=== PATIENT | female | born 1945 | race Hispanic/Latino ===

== ENCOUNTER 2017-06-14 12:34 | Observation (INO) | payer MEDICARE ==
[~2017-06-14] VITALS: Ht 149.9 cm; Wt 123.2 kg
[~2017-06-14 12:34] MED LIST: ADV250 IH; ALBU8.5H8 IH; AMLO10TA2 PO; ATOR10 PO; BUPR-47 PO; CARB-38 PO; CHLO25TA3 PO; CHOL500050 PO; CYAN5POW IM; FURO20TA4 PO; LOSA100T29 PO; MAGN400C PO; METF500T6 PO; METO-391 PO; MONT10TA24 PO; THEO400T3 PO; THYR60TA2 PO; ZIPR60CA PO
[2017-06-14 13:07] LABS: BASOPHILS % (AUTO) 0.9 % (0.0-5.0); EOSINOPHILS % (AUTO) 2.5 % (0.0-8.0); LYMPHOCYTES % (AUTO) 12.5 % (21.0-51.0); MEAN CORPUSCULAR HEMOGLOBIN 27.3 pg (27.0-33.0); MEAN CORPUSCULAR HGB CONC 31.7 g/dL (32.0-36.0); MEAN CORPUSCULAR VOLUME 86.1 fL (79-99); MONOCYTES % (AUTO) 7.9 % (3.0-13.0); NEUTROPHILS % (AUTO) 76.2 % (40.0-77.0); NUCLEATED RED BLOOD CELLS 0.1 % (0.0-0.19); PLATELET COUNT (AUTO) 213 K/uL (130-400); RED BLOOD CELL COUNT(AUTO) 4.53 MIL/uL (4.00-5.50); RED CELL DISTRIBUTION WIDTH 15.5 % (11.0-15.5); WHITE BLOOD COUNT (AUTO) 9.9 K/uL (4.8-10.8)
[2017-06-14 13:15] LABS: CREATININE 0.9 mg/dL (0.5-1.5); POTASSIUM 4.3 mmol/L (3.5-5.1)
[2017-06-14 13:20] LABS: ALBUMIN 3.3 g/dL (3.5-5.0); BILIRUBIN,TOTAL 0.5 mg/dL (0.2-1.0); INR 0.95 (0.85-1.15); PARTIAL THROMBOPLASTIN TIME 25.3 SEC (26.3-35.5); TOTAL PROTEIN, SERUM 6.9 g/dL (6.0-8.3)
[2017-06-14 13:29] LABS: B-TYPE NATRIURETIC PEPTIDE 203 pg/mL (0-100)
[2017-06-14 14:02] LABS: ABG BASE EXCESS 8.3 mmol/L (-2.0-3.0); ABG HCO3 37.8 mmol/L (21.0-28.0); ABG OXYGEN SATURATION 89.5 % (95.0-99.0); ABG PCO2 77 mmHg (32-45)
[2017-06-14 18:40] VITALS: BP 120/72
[2017-06-14 19:00] VITALS: BP 133/59
[2017-06-14] MEDS ORDERED: ZOSYN 3.375GM+NS 50ML 50 ML IV SCH (19:00)
[2017-06-14] MEDS ORDERED: METHYLPREDNISOLONE SOD SUCC 40MG/ML 1ML IVP SCH (19:00)
[2017-06-14] MEDS: INSULIN HUMULIN R 100 UNIT/ML 3ML SQ SCH (21:00)
[2017-06-14] MEDS ORDERED: THEOPHYLLINE ANHYDROUS 100 MG TAB.SR.12H PO SCH (21:00)
[2017-06-14] MEDS ORDERED: BUPROPION HCL 150 MG PO SCH (21:00)
[2017-06-14] MEDS ORDERED: ATORVASTATIN CALCIUM 10 MG TABLET PO SCH (21:00)
[2017-06-14] MEDS: **HM**Carbidopa/Levodopa (Carbidopa-Levo 25-100 mg Odt PO SCH (21:00)
[2017-06-14] MEDS ORDERED: SODIUM CHLORIDE 0.9% 500ML 500 ML IV ONE (23:32)
[2017-06-14] MEDS: BUDESONIDE 0.5 MG/2 ML INH IH SCH (23:34)
[2017-06-14] MEDS: IPRATROPIUM/ALBUTEROL SULFATE 3 ML SOLUTION IH SCH (23:34)
[2017-06-14] MEDS: ZOSYN 3.375GM+NS 50ML 50 ML IV SCH (23:37)
[2017-06-14] MEDS: MAGNESIUM OXIDE 400 MG TABLET PO SCH (23:40)
[2017-06-14] MEDS: METOPROLOL TARTRATE 25 MG TAB PO SCH (23:40)
[2017-06-14] MEDS: DOXYCYCLINE HYCLATE 100 MG TABLET PO SCH (23:40)
[2017-06-14] MEDS: METHYLPREDNISOLONE SOD SUCC 40MG/ML 1ML IVP SCH (23:41)
[2017-06-14] MEDS: ZIPRASIDONE HCL 20 MG CAPSULE PO SCH (23:42)
[2017-06-15] VITALS: BP 129/67
[2017-06-15 03:48] LABS: ABG BASE EXCESS 5.4 mmol/L (-2.0-3.0); ABG HCO3 33.3 mmol/L (21.0-28.0); ABG OXYGEN SATURATION 90.9 % (95.0-99.0); ABG PCO2 63 mmHg (32-45)
[2017-06-15 04:00] VITALS: BP 129/75
[2017-06-15] MEDS: INSULIN HUMULIN R 100 UNIT/ML 3ML SQ SCH ×3 (05:56→16:30)
[2017-06-15] MEDS: ZOSYN 3.375GM+NS 50ML 50 ML IV SCH ×2 (06:02→14:00)
[2017-06-15] MEDS: METHYLPREDNISOLONE SOD SUCC 40MG/ML 1ML IVP SCH ×4 (06:02→13:00)
[2017-06-15 06:20] LABS: HEMATOCRIT 38.6 % (36-48); MEAN CORPUSCULAR HEMOGLOBIN 27.3 pg (27.0-33.0); MEAN CORPUSCULAR VOLUME 85.4 fL (79-99); PLATELET COUNT (AUTO) 208 K/uL (130-400); RED BLOOD CELL COUNT(AUTO) 4.52 MIL/uL (4.00-5.50); RED CELL DISTRIBUTION WIDTH 15.2 % (11.0-15.5); WHITE BLOOD COUNT (AUTO) 5.4 K/uL (4.8-10.8)
[2017-06-15 06:30] LABS: MAGNESIUM 2.1 mg/dL (1.80-2.40); PHOSPHORUS 4.1 mg/dL (2.5-4.9); THEOPHYLLINE 2.8 mcg/mL (10.0-20.0)
[2017-06-15] MEDS: IPRATROPIUM/ALBUTEROL SULFATE 3 ML SOLUTION IH SCH ×3 (06:36→18:19)
[2017-06-15] MEDS: BUDESONIDE 0.5 MG/2 ML INH IH SCH ×2 (06:36→18:19)
[2017-06-15] MEDS ORDERED: THYROID PORK 60 MG PO SCH (07:30)
[2017-06-15 08:22] VITALS: BP 129/59
[2017-06-15] MEDS: **HM**Carbidopa/Levodopa (Carbidopa-Levo 25-100 mg Odt PO SCH (09:00)
[2017-06-15] MEDS ORDERED: AMLODIPINE BESYLATE 5 MG TAB PO SCH (09:00)
[2017-06-15] MEDS ORDERED: MONTELUKAST SODIUM 10 MG TAB PO SCH (09:00)
[2017-06-15] MEDS ORDERED: OSELTAMIVIR PHOSPHATE 75 MG CAP PO SCH (09:00)
[2017-06-15] MEDS ORDERED: LOSARTAN 100 MG TABLET PO SCH (09:00)
[2017-06-15] MEDS ORDERED: FUROSEMIDE 20 MG TABLET PO SCH (09:00)
[2017-06-15] MEDS ORDERED: CHLORTHALIDONE 25 MG PO SCH (09:00)
[2017-06-15 11:41] VITALS: BP 115/54
[2017-06-15] MEDS: DOXYCYCLINE HYCLATE 100 MG TABLET PO SCH (12:23)
[2017-06-15] MEDS: ZIPRASIDONE HCL 20 MG CAPSULE PO SCH (12:24)
[2017-06-15] MEDS: MAGNESIUM OXIDE 400 MG TABLET PO SCH (12:25)
[2017-06-15] MEDS: METOPROLOL TARTRATE 25 MG TAB PO SCH (12:26)
[2017-06-15] MEDS ORDERED: LEVO500T2 PO (15:59)
[2017-06-15 16:21] VITALS: BP 127/71
[2017-06-21] MEDS ORDERED: CHOLECALCIFEROL 50000 UNIT PO SCH (09:00)
[2017-07-14] MEDS ORDERED: CYANOCOBALAMIN (VITAMIN B-12) 1000 MCG/ML 1ML VIAL IM SCH (09:00)
== END 2017-06-15 19:50 | disposition home or self-care (01) ==
LOC: EDH 12:34 → EDHIP 15:35 → 3CH 18:00
PROVIDERS: ADMIT Internal Medicine; ATTEND Internal Medicine
DX: J44.1 Chronic obstructive pulmonary disease with (acute) exacerbation (principal); J96.22 Acute and chronic respiratory failure with hypercapnia; J96.21 Acute and chronic respiratory failure with hypoxia; E11.9 Type 2 diabetes mellitus without complications; I10 Essential (primary) hypertension; E78.5 Hyperlipidemia, unspecified; E03.9 Hypothyroidism, unspecified; E66.01 Morbid (severe) obesity due to excess calories; G47.33 Obstructive sleep apnea (adult) (pediatric); I25.10 Atherosclerotic heart disease of native coronary artery without angina pectoris; G20 Parkinson's disease; F41.9 Anxiety disorder, unspecified; Z87.891 Personal history of nicotine dependence; Z91.19 Patient's noncompliance with other medical treatment and regimen; Z90.710 Acquired absence of both cervix and uterus; Z99.81 Dependence on supplemental oxygen; Z96.659 Presence of unspecified artificial knee joint
CPT/HCPCS: 36415 ×2; 36600 ×2; 71045; 80053; 80198; 82803 ×2; 82948 ×4; 83605; 83735; 83880; 84100; 84484; 85025; 85027; 85610; 85730; 92610; 93005; 94640 ×7; 94660; 94664; 96365; 96366; 96372; 96375; 96376; 99285; A6453; G0378 ×28; J1815; J2543 ×2; J2920 ×2; J7040

== ENCOUNTER 2017-08-12 17:00 | Inpatient (IN) | payer MEDICARE ==
[~2017-08-12] VITALS: Ht 149.9 cm; Wt 111.1 kg
[~2017-08-12 17:00] MED LIST changes: -ADV250 IH; -ALBU8.5H8 IH; +LEVO500T2 PO; -METF500T6 PO
[2017-08-12 17:34] LABS: HEMATOCRIT 38.4 % (36-48); LYMPHOCYTES % (AUTO) 11.2 % (21.0-51.0); MEAN CORPUSCULAR HGB CONC 32.3 g/dL (32.0-36.0); MEAN CORPUSCULAR VOLUME 86.6 fL (79-99); MONOCYTES % (AUTO) 11.4 % (3.0-13.0); NEUTROPHILS % (AUTO) 75.4 % (40.0-77.0); NUCLEATED RED BLOOD CELLS 0.2 % (0.0-0.19); PLATELET COUNT (AUTO) 221 K/uL (130-400); RED BLOOD CELL COUNT(AUTO) 4.43 MIL/uL (4.00-5.50); RED CELL DISTRIBUTION WIDTH 15.3 % (11.0-15.5); WHITE BLOOD COUNT (AUTO) 10.8 K/uL (4.8-10.8)
[2017-08-12 17:59] LABS: B-TYPE NATRIURETIC PEPTIDE 413 pg/mL (0-100)
[2017-08-12 18:24] LABS: POTASSIUM 3.8 mmol/L (3.5-5.1)
[2017-08-12 18:29] LABS: ABG BASE EXCESS 5.9 mmol/L (-2.0-3.0); ABG HCO3 34.9 mmol/L (21.0-28.0); ABG OXYGEN SATURATION 98.6 % (95.0-99.0); ABG PCO2 71 mmHg (32-45)
[2017-08-12 18:29] LABS: ALBUMIN 3.2 g/dL (3.5-5.0); BILIRUBIN,TOTAL 0.5 mg/dL (0.2-1.0); TOTAL PROTEIN, SERUM 6.8 g/dL (6.0-8.3)
[2017-08-12] MEDS ORDERED: ASPIRIN 325 MG TABLET ONE (18:53)
[2017-08-12] MEDS ORDERED: FUROSEMIDE 10 MG/ML 4ML VIAL ONE (18:53)
[2017-08-12] MEDS ORDERED: ONDANSETRON HCL 4 MG/2 ML VIAL IVP PRN (21:15)
[2017-08-12] MEDS ORDERED: ACETAMINOPHEN 325 MG TAB PO PRN (21:15)
[2017-08-12] MEDS ORDERED: IPRATROPIUM/ALBUTEROL SULFATE 3 ML SOLUTION IH PRN (21:15)
[2017-08-12 21:24] LABS: ABG BASE EXCESS 6.8 mmol/L (-2.0-3.0); ABG HCO3 36.8 mmol/L (21.0-28.0); ABG OXYGEN SATURATION 95.9 % (95.0-99.0); ABG PCO2 79 mmHg (32-45)
[2017-08-12] MEDS ORDERED: LEVOFLOXACIN 500 MG/D5W 100 ML 100 ML ONE (21:39)
[2017-08-12] MEDS: IPRATROPIUM/ALBUTEROL SULFATE 3 ML SOLUTION IH SCH (23:44)
[2017-08-13] MEDS: LEVOFLOXACIN 500 MG/D5W 100 ML 100 ML IV SCH ×2 (00:40→21:55)
[2017-08-13 00:44] VITALS: BP 115/66
[2017-08-13 04:08] VITALS: BP 117/68
[2017-08-13 05:10] LABS: HEMATOCRIT 37.9 % (36-48); MEAN CORPUSCULAR HEMOGLOBIN 28.2 pg (27.0-33.0); MEAN CORPUSCULAR HGB CONC 32.3 g/dL (32.0-36.0); MEAN CORPUSCULAR VOLUME 87.3 fL (79-99); NUCLEATED RED BLOOD CELLS 0.3 % (0.0-0.19); PLATELET COUNT (AUTO) 206 K/uL (130-400); RED BLOOD CELL COUNT(AUTO) 4.34 MIL/uL (4.00-5.50); RED CELL DISTRIBUTION WIDTH 15.5 % (11.0-15.5)
[2017-08-13 05:21] LABS: POTASSIUM 3.7 mmol/L (3.5-5.1)
[2017-08-13 05:28] LABS: B-TYPE NATRIURETIC PEPTIDE 164 pg/mL (0-100)
[2017-08-13] MEDS: IPRATROPIUM/ALBUTEROL SULFATE 3 ML SOLUTION IH SCH ×3 (06:15→18:27)
[2017-08-13] MEDS ORDERED: FUROSEMIDE 40 MG TABLET PO SCH (07:15)
[2017-08-13 07:29] LABS: ABG HCO3 40.5 mmol/L (21.0-28.0); ABG OXYGEN SATURATION 87.7 % (95.0-99.0); ABG PCO2 84 mmHg (32-45)
[2017-08-13] MEDS: INSULIN HUMULIN R 100 UNIT/ML 3ML SQ SCH ×4 (07:30→21:00)
[2017-08-13 07:50] VITALS: BP 106/54
[2017-08-13] MEDS: PANTOPRAZOLE SODIUM 40 MG TABLET.DR PO SCH (08:48)
[2017-08-13] MEDS: ENOXAPARIN SODIUM 40 MG/0.4 ML SYRINGE SQ SCH (08:52)
[2017-08-13 11:00] VITALS: BP 106/54
[2017-08-13 16:00] VITALS: BP 101/52
[2017-08-13] MEDS: FUROSEMIDE 40 MG TABLET PO SCH (16:26)
[2017-08-13 16:59] LABS: ABG BASE EXCESS 12.6 mmol/L (-2.0-3.0); ABG HCO3 41.7 mmol/L (21.0-28.0); ABG OXYGEN SATURATION 93.5 % (95.0-99.0); ABG PCO2 74 mmHg (32-45)
[2017-08-13 19:39] VITALS: BP 113/48
[2017-08-13] MEDS: MONTELUKAST SODIUM 10 MG TAB PO SCH (21:55)
[2017-08-13] MEDS: MAGNESIUM OXIDE 400 MG TABLET PO SCH (21:55)
[2017-08-13] MEDS: THEOPHYLLINE ANHYDROUS 100 MG TAB.SR.12H PO SCH (21:55)
[2017-08-13] MEDS: ATORVASTATIN CALCIUM 10 MG TABLET PO SCH (21:56)
[2017-08-13] MEDS: CARBIDOPA-LEVODOPA 25-100 TAB PO SCH (21:56)
[2017-08-13] MEDS: ZIPRASIDONE HCL 20 MG CAPSULE PO SCH (21:57)
[2017-08-13] MEDS: BUPROPION HCL 150 MG TABLET.SA PO SCH (21:57)
[2017-08-13] MEDS: METOPROLOL TARTRATE 25 MG TAB PO SCH (21:57)
[2017-08-14] VITALS: BP 99/58
[2017-08-14] MEDS: IPRATROPIUM/ALBUTEROL SULFATE 3 ML SOLUTION IH SCH ×5 (00:11→23:06)
[2017-08-14 04:28] VITALS: BP 97/46
[2017-08-14 05:01] LABS: ABG BASE EXCESS 14.8 mmol/L (-2.0-3.0); ABG HCO3 42.4 mmol/L (21.0-28.0); ABG OXYGEN SATURATION 95.1 % (95.0-99.0); ABG PCO2 64 mmHg (32-45)
[2017-08-14] MEDS: LEVOTHYROXINE 100 MCG PO SCH (06:47)
[2017-08-14] MEDS: INSULIN HUMULIN R 100 UNIT/ML 3ML SQ SCH ×4 (06:47→21:00)
[2017-08-14 07:00] VITALS: BP 119/49
[2017-08-14] MEDS ORDERED: THYROID PORK 60 MG PO SCH (07:30)
[2017-08-14] MEDS: LOSARTAN 100 MG TABLET PO SCH (09:15)
[2017-08-14] MEDS: MAGNESIUM OXIDE 400 MG TABLET PO SCH ×2 (09:15→16:24)
[2017-08-14] MEDS: CARBIDOPA-LEVODOPA 25-100 TAB PO SCH ×2 (09:15→21:07)
[2017-08-14] MEDS: METOPROLOL TARTRATE 25 MG TAB PO SCH ×2 (09:15→21:07)
[2017-08-14] MEDS: PANTOPRAZOLE SODIUM 40 MG TABLET.DR PO SCH (09:15)
[2017-08-14] MEDS: AMLODIPINE BESYLATE 5 MG TAB PO SCH (09:16)
[2017-08-14] MEDS: FUROSEMIDE 40 MG TABLET PO SCH ×2 (09:16→16:24)
[2017-08-14] MEDS: ENOXAPARIN SODIUM 40 MG/0.4 ML SYRINGE SQ SCH (09:17)
[2017-08-14] MEDS: ZIPRASIDONE HCL 20 MG CAPSULE PO SCH ×2 (09:21→21:07)
[2017-08-14 11:00] VITALS: BP 97/59
[2017-08-14 16:00] VITALS: BP 106/59
[2017-08-14 20:18] VITALS: BP 115/48
[2017-08-14] MEDS: BUPROPION HCL 150 MG TABLET.SA PO SCH (21:06)
[2017-08-14] MEDS: MONTELUKAST SODIUM 10 MG TAB PO SCH (21:07)
[2017-08-14] MEDS: ATORVASTATIN CALCIUM 10 MG TABLET PO SCH (21:07)
[2017-08-14] MEDS: LEVOFLOXACIN 500 MG/D5W 100 ML 100 ML IV SCH (21:07)
[2017-08-14] MEDS: THEOPHYLLINE ANHYDROUS 100 MG TAB.SR.12H PO SCH (21:07)
[2017-08-15] VITALS (7 sets, daily range): BP systolic 93–135; BP diastolic 41–82
[2017-08-15] MEDS: IPRATROPIUM/ALBUTEROL SULFATE 3 ML SOLUTION IH SCH ×3 (05:50→18:54)
[2017-08-15] MEDS: INSULIN HUMULIN R 100 UNIT/ML 3ML SQ SCH ×4 (06:54→21:00)
[2017-08-15] MEDS: LEVOTHYROXINE 100 MCG PO SCH (06:55)
[2017-08-15] MEDS: AMLODIPINE BESYLATE 5 MG TAB PO SCH (09:22)
[2017-08-15] MEDS: ZIPRASIDONE HCL 20 MG CAPSULE PO SCH ×2 (09:22→22:05)
[2017-08-15] MEDS: FUROSEMIDE 40 MG TABLET PO SCH ×2 (09:22→17:17)
[2017-08-15] MEDS: LOSARTAN 100 MG TABLET PO SCH (09:22)
[2017-08-15] MEDS: PANTOPRAZOLE SODIUM 40 MG TABLET.DR PO SCH (09:22)
[2017-08-15] MEDS: MAGNESIUM OXIDE 400 MG TABLET PO SCH ×2 (09:22→17:17)
[2017-08-15] MEDS: METOPROLOL TARTRATE 25 MG TAB PO SCH ×2 (09:22→21:00)
[2017-08-15] MEDS: CARBIDOPA-LEVODOPA 25-100 TAB PO SCH ×2 (09:22→22:05)
[2017-08-15] MEDS: ENOXAPARIN SODIUM 40 MG/0.4 ML SYRINGE SQ SCH (09:23)
[2017-08-15] MEDS: LACTULOSE 20 GM/30 ML UDCUP PO SCH (18:17)
[2017-08-15] MEDS: LEVOFLOXACIN 500 MG/D5W 100 ML 100 ML IV SCH (22:04)
[2017-08-15] MEDS: BUPROPION HCL 150 MG TABLET.SA PO SCH (22:05)
[2017-08-15] MEDS: ATORVASTATIN CALCIUM 10 MG TABLET PO SCH (22:05)
[2017-08-15] MEDS: THEOPHYLLINE ANHYDROUS 100 MG TAB.SR.12H PO SCH (22:05)
[2017-08-15] MEDS: MONTELUKAST SODIUM 10 MG TAB PO SCH (22:05)
[2017-08-16] MEDS: IPRATROPIUM/ALBUTEROL SULFATE 3 ML SOLUTION IH SCH ×3 (01:12→10:49)
[2017-08-16 04:00] VITALS: BP 98/57
[2017-08-16 04:23] LABS: BASOPHILS % (AUTO) 0.6 % (0.0-5.0); EOSINOPHILS % (AUTO) 2.2 % (0.0-8.0); HEMATOCRIT 40.5 % (36-48); LYMPHOCYTES % (AUTO) 15.6 % (21.0-51.0); MEAN CORPUSCULAR HEMOGLOBIN 27.7 pg (27.0-33.0); MEAN CORPUSCULAR HGB CONC 32.5 g/dL (32.0-36.0); MEAN CORPUSCULAR VOLUME 85.2 fL (79-99); MONOCYTES % (AUTO) 12.9 % (3.0-13.0); NEUTROPHILS % (AUTO) 68.7 % (40.0-77.0); NUCLEATED RED BLOOD CELLS 0.1 % (0.0-0.19); PLATELET COUNT (AUTO) 212 K/uL (130-400); RED BLOOD CELL COUNT(AUTO) 4.75 MIL/uL (4.00-5.50); RED CELL DISTRIBUTION WIDTH 15.5 % (11.0-15.5)
[2017-08-16 04:42] LABS: CREATININE 1.7 mg/dL (0.5-1.5); POTASSIUM 3.2 mmol/L (3.5-5.1)
[2017-08-16] MEDS: LACTULOSE 20 GM/30 ML UDCUP PO SCH ×3 (05:05→12:00)
[2017-08-16] MEDS: INSULIN HUMULIN R 100 UNIT/ML 3ML SQ SCH ×2 (06:00→11:30)
[2017-08-16] MEDS: LEVOTHYROXINE 100 MCG PO SCH (06:02)
[2017-08-16] MEDS ORDERED: POTASSIUM CHLORIDE 20 MEQ ERTAB PO PRN (07:00)
[2017-08-16] MEDS ORDERED: POTASSIUM CHLORIDE 20MEQ/100ML 100 ML IV PRN (07:00)
[2017-08-16] MEDS ORDERED: POTASSIUM CHLORIDE 10 MEQ/TAB.SA PO ONE ×3 (07:00→08:31)
[2017-08-16] MEDS ORDERED: LIDOCAINE HCL-MPF 1% 2ML VIAL IVP PRN (07:00)
[2017-08-16] MEDS ORDERED: POTASSIUM CHLORIDE 10% ELIXIR 20 MEQ/15 ML UDCUP PO PRN (07:00)
[2017-08-16 08:10] VITALS: BP 110/49
[2017-08-16] MEDS: ZIPRASIDONE HCL 20 MG CAPSULE PO SCH (08:37)
[2017-08-16] MEDS: CARBIDOPA-LEVODOPA 25-100 TAB PO SCH (08:37)
[2017-08-16] MEDS: METOPROLOL TARTRATE 25 MG TAB PO SCH (08:37)
[2017-08-16] MEDS: PANTOPRAZOLE SODIUM 40 MG TABLET.DR PO SCH (08:38)
[2017-08-16] MEDS: AMLODIPINE BESYLATE 5 MG TAB PO SCH (08:38)
[2017-08-16] MEDS: MAGNESIUM OXIDE 400 MG TABLET PO SCH (08:38)
[2017-08-16] MEDS: LOSARTAN 100 MG TABLET PO SCH (08:38)
[2017-08-16] MEDS: FUROSEMIDE 40 MG TABLET PO SCH (08:38)
[2017-08-16] MEDS: ENOXAPARIN SODIUM 40 MG/0.4 ML SYRINGE SQ SCH (08:40)
[2017-08-16 12:00] VITALS: BP 124/96
== END 2017-08-16 15:49 | disposition home or self-care (01) | DRG 189 ==
LOC: EDH 17:00 → OBSVTOIN 18:51 → EDHIP 18:51 → 2AH 23:17 → INTOOBSV 08-13 10:06 → OBSVTOIN 08-13 10:06
PROVIDERS: ADMIT Internal Medicine; ATTEND Internal Medicine
PROC: 5A09357 Assistance with Respiratory Ventilation, Less than 24 Consecutive Hours, Continuous Positive Airway Pressure (ICD-10-PCS; principal; 2017-08-13)
PROC: 5A09357 Assistance with Respiratory Ventilation, Less than 24 Consecutive Hours, Continuous Positive Airway Pressure (ICD-10-PCS; 2017-08-14)
PROC: 5A09357 Assistance with Respiratory Ventilation, Less than 24 Consecutive Hours, Continuous Positive Airway Pressure (ICD-10-PCS; 2017-08-15)
PROC: 5A09357 Assistance with Respiratory Ventilation, Less than 24 Consecutive Hours, Continuous Positive Airway Pressure (ICD-10-PCS; 2017-08-16)
DX: J96.21 Acute and chronic respiratory failure with hypoxia (principal); E66.2 Morbid (severe) obesity with alveolar hypoventilation; E87.2 Acidosis; J44.1 Chronic obstructive pulmonary disease with (acute) exacerbation; Z68.42 Body mass index [BMI] 45.0-49.9, adult; I10 Essential (primary) hypertension; E11.9 Type 2 diabetes mellitus without complications; E03.9 Hypothyroidism, unspecified; G20 Parkinson's disease; Z99.81 Dependence on supplemental oxygen; J96.22 Acute and chronic respiratory failure with hypercapnia; Z91.19 Patient's noncompliance with other medical treatment and regimen
CPT/HCPCS: 36415; 36600; 71045; 73080; 80048; 80053; 82550; 82803; 82948; 83880; 84484; 85025; 85027; 93005; 93970; 94640; 94660; 94664; 99291; A4344; G0378; J1650; J1815; J1940; J1956

== ENCOUNTER → 2018-02-08 | Outpatient (CLI) | payer MEDICARE ==
[~2018-02-08] MED LIST changes: -AMLO10TA2 PO; +AMLO10TA6 PO; -CHOL500050 PO; -CYAN5POW IM; -LEVO500T2 PO; +LOSA100T20 PO; -LOSA100T29 PO
== END | disposition home or self-care (01) ==
LOC: OIH 11:18
PROVIDERS: ATTEND Family Medicine
DX: R05 Cough (principal)
CPT/HCPCS: 71046

== ENCOUNTER → 2018-08-07 | Outpatient (CLI) | payer MEDICARE ==
[~2018-08-07] MED LIST changes: +ALLO100T PO; -AMLO10TA6 PO; -CHLO25TA3 PO; +HONEY 1 APPL/ML TUBE TP ONE; +KETO.5OS OU; +LEVO100 PO; +LIDOCAINE/PRILOCAINE CREAM 5GM TUBE TP ONE; -LOSA100T20 PO; -MAGN400C PO; +MAGOX PO; -METO-391 PO; +POTA20TA82 PO; -THYR60TA2 PO; +UMEC62.5 IH
[2018-08-07 13:07] VITALS: BP 128/87
== END | disposition home or self-care (01) ==
LOC: WHH 08:45
PROVIDERS: ATTEND Surgery
DX: E11.621 Type 2 diabetes mellitus with foot ulcer (principal); L89.610 Pressure ulcer of right heel, unstageable; L97.412 Non-pressure chronic ulcer of right heel and midfoot with fat layer exposed; E66.01 Morbid (severe) obesity due to excess calories; J84.10 Pulmonary fibrosis, unspecified; I10 Essential (primary) hypertension; I25.10 Atherosclerotic heart disease of native coronary artery without angina pectoris; G20 Parkinson's disease; J44.9 Chronic obstructive pulmonary disease, unspecified; M19.90 Unspecified osteoarthritis, unspecified site; M81.0 Age-related osteoporosis without current pathological fracture; G47.33 Obstructive sleep apnea (adult) (pediatric); F31.9 Bipolar disorder, unspecified; E78.5 Hyperlipidemia, unspecified; E03.9 Hypothyroidism, unspecified; F20.9 Schizophrenia, unspecified; F03.90 Unspecified dementia, unspecified severity, without behavioral disturbance, psychotic disturbance, mood disturbance, and anxiety; Z87.891 Personal history of nicotine dependence; Z99.81 Dependence on supplemental oxygen; Z79.84 Long term (current) use of oral hypoglycemic drugs; Z90.49 Acquired absence of other specified parts of digestive tract
CPT/HCPCS: 11042; A4450; G0463; J3490

== ENCOUNTER → 2018-08-14 | Outpatient (CLI) | payer MEDICARE ==
[~2018-08-14] MED LIST changes: -HONEY 1 APPL/ML TUBE TP ONE; -LIDOCAINE/PRILOCAINE CREAM 5GM TUBE TP ONE
[2018-08-14 12:50] VITALS: BP 119/64
== END | disposition home or self-care (01) ==
LOC: WHH 09:30
PROVIDERS: ATTEND Family Medicine
DX: E11.621 Type 2 diabetes mellitus with foot ulcer (principal); L89.619 Pressure ulcer of right heel, unspecified stage; L97.412 Non-pressure chronic ulcer of right heel and midfoot with fat layer exposed; I10 Essential (primary) hypertension; I25.10 Atherosclerotic heart disease of native coronary artery without angina pectoris; J44.9 Chronic obstructive pulmonary disease, unspecified; E66.01 Morbid (severe) obesity due to excess calories; G20 Parkinson's disease; M19.90 Unspecified osteoarthritis, unspecified site; G47.33 Obstructive sleep apnea (adult) (pediatric); E79.0 Hyperuricemia without signs of inflammatory arthritis and tophaceous disease; J84.10 Pulmonary fibrosis, unspecified; M81.0 Age-related osteoporosis without current pathological fracture; E03.9 Hypothyroidism, unspecified; F31.9 Bipolar disorder, unspecified; E78.5 Hyperlipidemia, unspecified; F20.9 Schizophrenia, unspecified; F03.90 Unspecified dementia, unspecified severity, without behavioral disturbance, psychotic disturbance, mood disturbance, and anxiety; Z99.81 Dependence on supplemental oxygen; Z90.49 Acquired absence of other specified parts of digestive tract; Z87.891 Personal history of nicotine dependence; Z79.84 Long term (current) use of oral hypoglycemic drugs
CPT/HCPCS: 11042; A6021

== ENCOUNTER → 2018-08-22 | Outpatient (CLI) | payer MEDICARE ==
[~2018-08-22] MED LIST changes: +LIDOCAINE/PRILOCAINE CREAM 5GM TUBE TP ONE
[2018-08-22 11:10] VITALS: BP 115/67
== END | disposition home or self-care (01) ==
LOC: WHH 09:30
PROVIDERS: ATTEND Surgery
DX: E11.621 Type 2 diabetes mellitus with foot ulcer (principal); L89.613 Pressure ulcer of right heel, stage 3; L97.412 Non-pressure chronic ulcer of right heel and midfoot with fat layer exposed; I10 Essential (primary) hypertension; I25.10 Atherosclerotic heart disease of native coronary artery without angina pectoris; J44.9 Chronic obstructive pulmonary disease, unspecified; E66.01 Morbid (severe) obesity due to excess calories; G20 Parkinson's disease; M19.90 Unspecified osteoarthritis, unspecified site; G47.33 Obstructive sleep apnea (adult) (pediatric); E79.0 Hyperuricemia without signs of inflammatory arthritis and tophaceous disease; J84.10 Pulmonary fibrosis, unspecified; M81.0 Age-related osteoporosis without current pathological fracture; E03.9 Hypothyroidism, unspecified; F31.9 Bipolar disorder, unspecified; E78.5 Hyperlipidemia, unspecified; F20.9 Schizophrenia, unspecified; F03.90 Unspecified dementia, unspecified severity, without behavioral disturbance, psychotic disturbance, mood disturbance, and anxiety; Z99.81 Dependence on supplemental oxygen; Z90.49 Acquired absence of other specified parts of digestive tract; Z87.891 Personal history of nicotine dependence; Z79.84 Long term (current) use of oral hypoglycemic drugs
CPT/HCPCS: 11042; A6021; J3490

== ENCOUNTER → 2018-08-29 | Outpatient (CLI) | payer MEDICARE ==
[2018-08-29 12:16] VITALS: BP 120/65
== END | disposition home or self-care (01) ==
LOC: WHH 09:45
PROVIDERS: ATTEND Family Medicine
DX: E11.621 Type 2 diabetes mellitus with foot ulcer (principal); L89.619 Pressure ulcer of right heel, unspecified stage; L97.411 Non-pressure chronic ulcer of right heel and midfoot limited to breakdown of skin; I10 Essential (primary) hypertension; I25.10 Atherosclerotic heart disease of native coronary artery without angina pectoris; J44.9 Chronic obstructive pulmonary disease, unspecified; E66.01 Morbid (severe) obesity due to excess calories; G20 Parkinson's disease; M19.90 Unspecified osteoarthritis, unspecified site; G47.33 Obstructive sleep apnea (adult) (pediatric); E79.0 Hyperuricemia without signs of inflammatory arthritis and tophaceous disease; J84.10 Pulmonary fibrosis, unspecified; M81.0 Age-related osteoporosis without current pathological fracture; E03.9 Hypothyroidism, unspecified; F31.9 Bipolar disorder, unspecified; E78.5 Hyperlipidemia, unspecified; F20.9 Schizophrenia, unspecified; F03.90 Unspecified dementia, unspecified severity, without behavioral disturbance, psychotic disturbance, mood disturbance, and anxiety; Z99.81 Dependence on supplemental oxygen; Z90.49 Acquired absence of other specified parts of digestive tract; Z87.891 Personal history of nicotine dependence; Z79.84 Long term (current) use of oral hypoglycemic drugs
CPT/HCPCS: 97597; J3490

== ENCOUNTER 2018-09-05 09:15 | Outpatient (CLI) | payer MEDICARE ==
[~2018-09-05 09:15] MED LIST changes: -LIDOCAINE/PRILOCAINE CREAM 5GM TUBE TP ONE
[2018-09-05 10:09] VITALS: BP 124/68
== END 2018-09-05 11:21 | disposition home or self-care (01) ==
LOC: WHH 09:15
PROVIDERS: ATTEND Family Medicine
DX: E11.621 Type 2 diabetes mellitus with foot ulcer (principal); L89.619 Pressure ulcer of right heel, unspecified stage; L97.418 Non-pressure chronic ulcer of right heel and midfoot with other specified severity; I10 Essential (primary) hypertension; I25.10 Atherosclerotic heart disease of native coronary artery without angina pectoris; J44.9 Chronic obstructive pulmonary disease, unspecified; E66.01 Morbid (severe) obesity due to excess calories; G20 Parkinson's disease; M19.90 Unspecified osteoarthritis, unspecified site; G47.33 Obstructive sleep apnea (adult) (pediatric); E79.0 Hyperuricemia without signs of inflammatory arthritis and tophaceous disease; J84.10 Pulmonary fibrosis, unspecified; M81.0 Age-related osteoporosis without current pathological fracture; E03.9 Hypothyroidism, unspecified; F31.9 Bipolar disorder, unspecified; E78.5 Hyperlipidemia, unspecified; F20.9 Schizophrenia, unspecified; F03.90 Unspecified dementia, unspecified severity, without behavioral disturbance, psychotic disturbance, mood disturbance, and anxiety; Z99.81 Dependence on supplemental oxygen; Z90.49 Acquired absence of other specified parts of digestive tract; Z87.891 Personal history of nicotine dependence; Z79.84 Long term (current) use of oral hypoglycemic drugs
CPT/HCPCS: G0463

== ENCOUNTER 2020-06-27 21:14 | Inpatient (IN) | payer MEDICARE ==
[~2020-06-27] VITALS: Ht 162.6 cm; Wt 130.3 kg
[~2020-06-27 21:14] MED LIST changes: -BUPR-47 PO; +BUPR-49 PO; +MAGN400T7 PO; -MAGOX PO; -MONT10TA24 PO; +MONT10TA32 PO
[2020-06-27 21:52] LABS: BASOPHILS % (AUTO) 0.7 % (0.0-5.0); EOSINOPHILS % (AUTO) 2.4 % (0.0-8.0); HEMATOCRIT 37.8 % (36-48); LYMPHOCYTES % (AUTO) 14.1 % (21.0-51.0); MEAN CORPUSCULAR HEMOGLOBIN 27.2 pg (27.0-33.0); MEAN CORPUSCULAR VOLUME 96.9 fL (79-99); MONOCYTES % (AUTO) 8.5 % (3.0-13.0); NEUTROPHILS % (AUTO) 73.5 % (40.0-77.0); NUCLEATED RED BLOOD CELLS 0.4 % (0.0-0.19); PLATELET COUNT (AUTO) 196 K/uL (130-400); RED CELL DISTRIBUTION WIDTH 15.1 % (11.0-15.5); WHITE BLOOD COUNT (AUTO) 7.6 K/uL (4.8-10.8)
[2020-06-27 21:54] LABS: APPEARANCE,URINE Clear (CLEAR); BILIRUBIN,URINE Negative (NEGATIVE); COLOR,URINE Yellow (YELLOW); GLUCOSE, URINE (UA) Negative (NEGATIVE); KETONES,URINE Negative (NEGATIVE); LEUKOCYTE ESTERASE ,URINE Negative (NEGATIVE); NITRATE,URINE Negative (NEGATIVE); OCCULT BLOOD,URINE Negative (NEGATIVE); PROTEIN,URINE Negative (NEGATIVE); UROBILINOGEN,URINE 0.2 mg/dL (0.2-1.0)
[2020-06-27 22:05] LABS: INR 0.99 (0.85-1.15); PROTHROMBIN TIME 10.8 SEC (9.6-11.6)
[2020-06-27 22:19] LABS: ALANINE AMINOTRANSFERASE 11 U/L (12-78); ALBUMIN 3.3 g/dL (3.5-5.0); ASPARTATE AMINOTRANSFERASE 14 U/L (10-37); BILIRUBIN,TOTAL 0.3 mg/dL (0.2-1.0); CARBON DIOXIDE 36 mmol/L (21-32); CHLORIDE 104 mmol/L (101-111); CREATINE KINASE, TOTAL 87 U/L (21-232); CREATININE 1.9 mg/dL (0.5-1.5); GLOMERULAR FILTR. RATE CALC 28 mL/min (>60); GLUCOSE,RANDOM 127 mg/dL (70-105); MYOGLOBIN 88 ng/mL (10-92); SODIUM SERUM 141 mmol/L (136-145); TOTAL PROTEIN, SERUM 6.5 g/dL (6.0-8.3); TROPONIN I < 0.04 ng/mL (0.00-0.06); UREA NITROGEN, BLOOD 51 mg/dL (7-18)
[2020-06-27 22:26] LABS: PARTIAL THROMBOPLASTIN TIME 20.8 SEC (26.3-35.5)
[2020-06-27 22:35] LABS: POTASSIUM 6.2 mmol/L (3.5-5.1)
[2020-06-27 22:38] LABS: ABG BASE EXCESS 2.6 mmol/L (-2.0-3.0); ABG HCO3 34.3 mmol/L (21.0-28.0); ABG OXYGEN SATURATION 89.9 % (95.0-99.0); ABG PCO2 92 mmHg (32-45)
[2020-06-27] MEDS ORDERED: CEFTRIAXONE SODIUM 1 GM ONE (22:44)
[2020-06-27] MEDS ORDERED: AZITHROMYCIN 500MG+NS 250ML 250 ML IV ONE (22:45)
[2020-06-27] MEDS ORDERED: ALBUTEROL SULFATE 0.083% 2.5 MG/3 ML INH IH ONE (22:53)
[2020-06-27] MEDS ORDERED: METHYLPREDNISOLONE SOD SUCC 125MG/2ML VIAL ONE (23:42)
[2020-06-28] MEDS ORDERED: ALBUTEROL SULFATE 0.083% 2.5 MG/3 ML INH IH ONE (00:50)
[2020-06-28 03:04] LABS: ALBUMIN 3.4 g/dL (3.5-5.0); BILIRUBIN,TOTAL 0.3 mg/dL (0.2-1.0); CREATININE 1.9 mg/dL (0.5-1.5); TOTAL PROTEIN, SERUM 7.1 g/dL (6.0-8.3)
[2020-06-28 03:16] LABS: POTASSIUM 6.2 mmol/L (3.5-5.1)
[2020-06-28] MEDS ORDERED: DEXTROSE 50%-WATER 50 ML DISP.SYRIN IV ONE (04:01)
[2020-06-28] MEDS ORDERED: CALCIUM GLUCONATE 1 GM/10 ML VIAL IV ONE (04:01)
[2020-06-28] MEDS ORDERED: SODIUM BICARB 50MEQ 50ML VIAL 50 ML ONE (04:05)
[2020-06-28] MEDS ORDERED: SODIUM POLYSTYRENE SULFONATE 15 GM/60 ML ML ONE (04:05)
[2020-06-28] MEDS ORDERED: INSULIN HUMULIN R 100 UNIT/ML 3ML ONE (04:06)
[2020-06-28] MEDS ORDERED: SODIUM CHLORIDE 0.9% 50 ML IV ONE (04:07)
[2020-06-28 05:00] VITALS: BP 112/52
[2020-06-28 06:51] LABS: HEMATOCRIT 40.5 % (36-48); MEAN CORPUSCULAR HEMOGLOBIN 27.1 pg (27.0-33.0); MEAN CORPUSCULAR HGB CONC 27.9 g/dL (32.0-36.0); MEAN CORPUSCULAR VOLUME 97.1 fL (79-99); NUCLEATED RED BLOOD CELLS 0.4 % (0.0-0.19); PLATELET COUNT (AUTO) 198 K/uL (130-400); RED BLOOD CELL COUNT(AUTO) 4.17 MIL/uL (4.00-5.50); RED CELL DISTRIBUTION WIDTH 14.7 % (11.0-15.5); WHITE BLOOD COUNT (AUTO) 5.3 K/uL (4.8-10.8)
[2020-06-28] MEDS ORDERED: MELO-108 PO (06:52)
[2020-06-28] MEDS ORDERED: VIT D PO (06:52)
[2020-06-28] MEDS ORDERED: FURO40TA5 PO (06:52)
[2020-06-28] MEDS ORDERED: ARIP10TA16 PO (06:52)
[2020-06-28] MEDS ORDERED: AMLO-258 PO (06:52)
[2020-06-28] MEDS ORDERED: ENOXAPARIN SODIUM 100 MG/1 ML SQ SCH (06:52)
[2020-06-28] MEDS ORDERED: [UNRECOGNIZED DRUG - OTHER] IH (06:52)
[2020-06-28] MEDS ORDERED: LOSA1TAB37 PO (06:52)
[2020-06-28] MEDS ORDERED: METO25TA6 PO (06:52)
[2020-06-28] MEDS ORDERED: LIOT5TAB11 PO (06:52)
[2020-06-28 07:58] LABS: BAND NEUTROPHILS % (MANUAL) 1 % (0-2); BASOPHILS % (MANUAL) 1 % (0-2); LYMPHOCYTES % (MANUAL) 10 % (22-44); MAN.DIFF COMMENT-IMPRESSION MANUAL DIFFERENTIAL; MONOCYTES % (MANUAL) 3 % (2-9); PLATELET MORPHOLOGY COMMENT ADEQUATE; SEGMENTED NEUTROPHILS % 85 % (40-70)
[2020-06-28 08:54] VITALS: BP 120/64
[2020-06-28] MEDS ORDERED: FUROSEMIDE 40 MG TABLET PO SCH (09:00)
[2020-06-28] MEDS: MELOXICAM 7.5 MG TABLET PO SCH (09:00)
[2020-06-28] MEDS: AMLODIPINE BESYLATE 5 MG TAB PO SCH (09:00)
[2020-06-28] MEDS: LIOTHYRONINE SODIUM 5 MCG PO SCH (09:00)
[2020-06-28] MEDS ORDERED: LOSARTAN/HYDROCHLOROTHIAZIDE 50-12.5MG TABLET PO SCH (09:00)
[2020-06-28] MEDS: IPRATROPIUM/ALBUTEROL SULFATE 3 ML SOLUTION IH SCH ×4 (09:24→22:40)
[2020-06-28] MEDS ORDERED: SODIUM POLYSTYRENE SULFONATE 15 GM/60 ML ML PO SCH (10:00)
[2020-06-28] MEDS: ASPIRIN 81MG TAB.CHEW PO SCH (10:18)
[2020-06-28] MEDS: PANTOPRAZOLE 40 MG/VIAL IVP SCH ×2 (10:18→22:19)
[2020-06-28] MEDS: METHYLPREDNISOLONE SOD SUCC 125MG/2ML VIAL IVP SCH ×3 (10:18→18:15)
[2020-06-28] MEDS: METOPROLOL TARTRATE 25 MG TAB PO SCH (10:19)
[2020-06-28] MEDS: LEVOFLOXACIN 500 MG/D5W 100 ML 100 ML IV SCH (10:20)
[2020-06-28 12:22] VITALS: BP 117/79
[2020-06-28 16:29] LABS: ALBUMIN 3.2 g/dL (3.5-5.0); BILIRUBIN,TOTAL 0.2 mg/dL (0.2-1.0); CREATININE 1.6 mg/dL (0.5-1.5); PHOSPHORUS 5.4 mg/dL (2.5-4.9); POTASSIUM 4.8 mmol/L (3.5-5.1); TOTAL PROTEIN, SERUM 6.7 g/dL (6.0-8.3)
[2020-06-28 16:31] LABS: ABG BASE EXCESS 9.2 mmol/L (-2.0-3.0); ABG HCO3 40.3 mmol/L (21.0-28.0); ABG OXYGEN SATURATION 94.2 % (95.0-99.0); ABG PCO2 90 mmHg (32-45)
[2020-06-28 16:48] VITALS: BP 131/58
[2020-06-28] MEDS ORDERED: SODIUM BICARB 8.4% 50ML SYRINGE IVP SCH (18:15)
[2020-06-28] MEDS ORDERED: SODIUM BICARB 50MEQ 50ML VIAL IV SCH (18:30)
[2020-06-28 19:42] LABS: ABG BASE EXCESS 14.3 mmol/L (-2.0-3.0); ABG HCO3 43.8 mmol/L (21.0-28.0); ABG PCO2 78 mmHg (32-45)
[2020-06-28 19:49] VITALS: BP 138/43
[2020-06-28] MEDS: ARIPIPRAZOLE 5 MG TABLET PO SCH (22:15)
[2020-06-28 23:42] VITALS: BP 111/57
[2020-06-29] MEDS: METHYLPREDNISOLONE SOD SUCC 125MG/2ML VIAL IVP SCH ×4 (00:08→20:34)
[2020-06-29] MEDS: BUPROPION HCL 150 MG TABLET.SA PO SCH ×2 (01:40→20:51)
[2020-06-29] MEDS ORDERED: LORAZEPAM 2 MG/ML 1 ML VIAL IVP ONE (02:15)
[2020-06-29] MEDS: IPRATROPIUM/ALBUTEROL SULFATE 3 ML SOLUTION IH SCH ×6 (02:19→22:35)
[2020-06-29 05:14] VITALS: BP 153/84
[2020-06-29] MEDS: LEVOFLOXACIN 500 MG/D5W 100 ML 100 ML IV SCH (06:08)
[2020-06-29 08:23] VITALS: BP 128/69
[2020-06-29 08:41] LABS: HEMATOCRIT 38.3 % (36-48); LYMPHOCYTES % (AUTO) 9.3 % (21.0-51.0); MEAN CORPUSCULAR HEMOGLOBIN 27.2 pg (27.0-33.0); MEAN CORPUSCULAR VOLUME 93.9 fL (79-99); MONOCYTES % (AUTO) 1.3 % (3.0-13.0); NEUTROPHILS % (AUTO) 88.5 % (40.0-77.0); NUCLEATED RED BLOOD CELLS 0.7 % (0.0-0.19); PLATELET COUNT (AUTO) 193 K/uL (130-400); RED BLOOD CELL COUNT(AUTO) 4.08 MIL/uL (4.00-5.50); RED CELL DISTRIBUTION WIDTH 14.5 % (11.0-15.5); WHITE BLOOD COUNT (AUTO) 4.5 K/uL (4.8-10.8)
[2020-06-29] MEDS: CARBIDOPA PO SCH ×2 (09:00→20:51)
[2020-06-29] MEDS: LEVODOPA PO SCH ×2 (09:00→20:51)
[2020-06-29] MEDS ORDERED: ZIPRASIDONE HCL 20 MG CAPSULE PO SCH (09:00)
[2020-06-29] MEDS: LIOTHYRONINE SODIUM 5 MCG PO SCH (09:00)
[2020-06-29 09:01] LABS: ALBUMIN 3.1 g/dL (3.5-5.0); BILIRUBIN,TOTAL 0.3 mg/dL (0.2-1.0); CREATININE 1.3 mg/dL (0.5-1.5); MAGNESIUM 2.7 mg/dL (1.80-2.40); PHOSPHORUS 4.7 mg/dL (2.5-4.9); POTASSIUM 3.4 mmol/L (3.5-5.1); TOTAL PROTEIN, SERUM 6.5 g/dL (6.0-8.3)
[2020-06-29 09:06] LABS: ABG BASE EXCESS 11.7 mmol/L (-2.0-3.0); ABG HCO3 40.4 mmol/L (21.0-28.0); ABG OXYGEN SATURATION 91.4 % (95.0-99.0); ABG PCO2 71 mmHg (32-45)
[2020-06-29] MEDS: PANTOPRAZOLE 40 MG/VIAL IVP SCH ×2 (10:48→20:39)
[2020-06-29] MEDS: AMLODIPINE BESYLATE 5 MG TAB PO SCH (10:49)
[2020-06-29] MEDS: METOPROLOL TARTRATE 25 MG TAB PO SCH (10:49)
[2020-06-29] MEDS: MELOXICAM 7.5 MG TABLET PO SCH (10:49)
[2020-06-29] MEDS: ASPIRIN 81MG TAB.CHEW PO SCH (10:50)
[2020-06-29 11:58] VITALS: BP 148/62
[2020-06-29 16:00] VITALS: BP 113/58
[2020-06-29 19:38] VITALS: BP 127/56
[2020-06-29] MEDS: ARIPIPRAZOLE 5 MG TABLET PO SCH (20:39)
[2020-06-29] MEDS ORDERED: NON-FORMULARY MEDICATION 1 EACH (Bupropion HCl (Bupropion Xl) 150 MG) PO SCH (21:00)
[2020-06-30] VITALS (7 sets, daily range): BP systolic 126–154; BP diastolic 52–72
[2020-06-30] MEDS: IPRATROPIUM/ALBUTEROL SULFATE 3 ML SOLUTION IH SCH ×6 (01:53→22:20)
[2020-06-30] MEDS: METHYLPREDNISOLONE SOD SUCC 125MG/2ML VIAL IVP SCH ×5 (03:05→23:41)
[2020-06-30] MEDS: LEVOFLOXACIN 500 MG/D5W 100 ML 100 ML IV SCH (05:41)
[2020-06-30] MEDS: LEVODOPA PO SCH ×2 (09:14→21:00)
[2020-06-30] MEDS: CARBIDOPA PO SCH ×2 (09:14→21:00)
[2020-06-30] MEDS: LIOTHYRONINE SODIUM 5 MCG PO SCH (09:14)
[2020-06-30] MEDS: METOPROLOL TARTRATE 25 MG TAB PO SCH (09:15)
[2020-06-30] MEDS: PANTOPRAZOLE 40 MG/VIAL IVP SCH ×2 (09:15→21:07)
[2020-06-30] MEDS: AMLODIPINE BESYLATE 5 MG TAB PO SCH (09:15)
[2020-06-30] MEDS: ASPIRIN 81MG TAB.CHEW PO SCH (09:15)
[2020-06-30] MEDS: MELOXICAM 7.5 MG TABLET PO SCH (09:15)
[2020-06-30] MEDS: BUPROPION HCL 150 MG TABLET.SA PO SCH (21:07)
[2020-06-30] MEDS: ARIPIPRAZOLE 5 MG TABLET PO SCH (21:07)
[2020-07-01] MEDS: IPRATROPIUM/ALBUTEROL SULFATE 3 ML SOLUTION IH SCH ×6 (01:53→22:24)
[2020-07-01 04:20] VITALS: BP 146/55
[2020-07-01 04:49] LABS: HEMATOCRIT 38.8 % (36-48); MEAN CORPUSCULAR HEMOGLOBIN 26.4 pg (27.0-33.0); MEAN CORPUSCULAR HGB CONC 29.4 g/dL (32.0-36.0); MEAN CORPUSCULAR VOLUME 89.8 fL (79-99); RED BLOOD CELL COUNT(AUTO) 4.32 MIL/uL (4.00-5.50); RED CELL DISTRIBUTION WIDTH 14.1 % (11.0-15.5); WHITE BLOOD COUNT (AUTO) 3.3 K/uL (4.8-10.8)
[2020-07-01 04:59] LABS: CREATININE 1.3 mg/dL (0.5-1.5); POTASSIUM 3.3 mmol/L (3.5-5.1)
[2020-07-01] MEDS: METHYLPREDNISOLONE SOD SUCC 125MG/2ML VIAL IVP SCH ×3 (05:59→21:13)
[2020-07-01] MEDS: LEVOFLOXACIN 500 MG/D5W 100 ML 100 ML IV SCH (05:59)
[2020-07-01] MEDS: METOPROLOL TARTRATE 25 MG TAB PO SCH (10:23)
[2020-07-01] MEDS: ASPIRIN 81MG TAB.CHEW PO SCH (10:23)
[2020-07-01] MEDS: PANTOPRAZOLE 40 MG/VIAL IVP SCH ×2 (10:23→21:13)
[2020-07-01] MEDS: MELOXICAM 7.5 MG TABLET PO SCH (10:24)
[2020-07-01] MEDS: CARBIDOPA PO SCH ×2 (10:40→21:00)
[2020-07-01] MEDS: LIOTHYRONINE SODIUM 5 MCG PO SCH (10:40)
[2020-07-01] MEDS: LEVODOPA PO SCH ×2 (10:40→21:00)
[2020-07-01 12:00] VITALS: BP 140/74
[2020-07-01] MEDS: AMLODIPINE BESYLATE 5 MG TAB PO SCH (12:02)
[2020-07-01 16:00] VITALS: BP 114/51
[2020-07-01 19:00] VITALS: BP 110/59
[2020-07-01] MEDS: ARIPIPRAZOLE 5 MG TABLET PO SCH (21:13)
[2020-07-01] MEDS: BUPROPION HCL 150 MG TABLET.SA PO SCH (22:07)
[2020-07-02] VITALS: BP 138/68
[2020-07-02] MEDS: IPRATROPIUM/ALBUTEROL SULFATE 3 ML SOLUTION IH SCH ×4 (03:18→13:17)
[2020-07-02 04:00] VITALS: BP 129/68
[2020-07-02 04:28] LABS: HEMATOCRIT 37.9 % (36-48); MEAN CORPUSCULAR HEMOGLOBIN 26.7 pg (27.0-33.0); MEAN CORPUSCULAR HGB CONC 29.3 g/dL (32.0-36.0); MEAN CORPUSCULAR VOLUME 91.1 fL (79-99); RED BLOOD CELL COUNT(AUTO) 4.16 MIL/uL (4.00-5.50); RED CELL DISTRIBUTION WIDTH 13.9 % (11.0-15.5)
[2020-07-02 04:38] LABS: CREATININE 1.3 mg/dL (0.5-1.5); POTASSIUM 3.5 mmol/L (3.5-5.1)
[2020-07-02] MEDS: METHYLPREDNISOLONE SOD SUCC 125MG/2ML VIAL IVP SCH (05:07)
[2020-07-02] MEDS: LEVOFLOXACIN 500 MG/D5W 100 ML 100 ML IV SCH (05:07)
[2020-07-02 08:06] VITALS: BP 125/57
[2020-07-02] MEDS: LEVODOPA PO SCH (09:00)
[2020-07-02] MEDS: CARBIDOPA PO SCH (09:00)
[2020-07-02] MEDS ORDERED: PANTOPRAZOLE SODIUM 40 MG TABLET.DR PO SCH (09:00)
[2020-07-02] MEDS: LIOTHYRONINE SODIUM 5 MCG PO SCH (09:00)
[2020-07-02] MEDS: AMLODIPINE BESYLATE 5 MG TAB PO SCH (10:10)
[2020-07-02] MEDS: METOPROLOL TARTRATE 25 MG TAB PO SCH (10:10)
[2020-07-02] MEDS: MELOXICAM 7.5 MG TABLET PO SCH (10:11)
[2020-07-02] MEDS: ASPIRIN 81MG TAB.CHEW PO SCH (10:11)
[2020-07-02 11:38] VITALS: BP 129/81
[2020-07-02] MEDS ORDERED: METHYLPREDNISOLONE SOD SUCC 125MG/2ML VIAL IVP SCH (14:00)
[2020-07-02 16:00] VITALS: BP 143/94
[2020-07-02] MEDS ORDERED: INSULIN GLARGINE 100 UNITS/ML 10 ML VIAL SQ SCH (21:00)
== END 2020-07-02 16:53 | DRG 193 ==
LOC: EDH 21:14 → OBSVTOIN 23:36 → EDHIP 23:36 → 4DH 06-28 06:18
PROVIDERS: ADMIT Internal Medicine Pulmonary Disease; ATTEND Internal Medicine Pulmonary Disease
DX: J18.9 Pneumonia, unspecified organism (principal); J96.22 Acute and chronic respiratory failure with hypercapnia; J96.21 Acute and chronic respiratory failure with hypoxia; J44.0 Chronic obstructive pulmonary disease with (acute) lower respiratory infection; N39.0 Urinary tract infection, site not specified; Z68.42 Body mass index [BMI] 45.0-49.9, adult; E66.2 Morbid (severe) obesity with alveolar hypoventilation; E03.9 Hypothyroidism, unspecified; E11.9 Type 2 diabetes mellitus without complications; G20 Parkinson's disease; F20.9 Schizophrenia, unspecified; I25.10 Atherosclerotic heart disease of native coronary artery without angina pectoris; Z99.81 Dependence on supplemental oxygen; M19.90 Unspecified osteoarthritis, unspecified site; R79.89 Other specified abnormal findings of blood chemistry; E78.5 Hyperlipidemia, unspecified; E87.5 Hyperkalemia; I10 Essential (primary) hypertension; Z66 Do not resuscitate; Z79.4 Long term (current) use of insulin; Z87.891 Personal history of nicotine dependence; Z79.899 Other long term (current) drug therapy; Z20.822 Contact with and (suspected) exposure to COVID-19
CPT/HCPCS: 36415; 36600; 71045; 80048; 80053; 81003; 82550; 82803; 82948; 83605; 83690; 83735; 83874; 83880; 84100; 84132; 84145; 84484; 85025; 85027; 85378; 85610; 85730; 86900; 86901; 87040; 87088; 87426; 93005; 93970; 94640; 94660; 94664; 97039; 99291; C9113; G0378; J0456; J0610; J0696; J1650; J1815; J1956; J2060; J2930; J3490; J7070; U0003